=== PATIENT | male | born 1955 | race Caucasian/White ===

== ENCOUNTER 2021-04-07 21:48 | Emergency (ER) | payer SELFPAY ==
--- NOTE | 2021-04-07 22:14 | EDPHYS ---
Physician Documentation [facility] Name: Ana Monroe Age: 65 yrs Sex: Male : 1955 Arrival Date: 04/07/2021 Time: 21:54 Bed 26 Private MD: ED Physician Silvana Kimball HPI: 04/07 22:10 This 65 yrs old Male presents to ER via Unassigned with complaints of ma2 laceration. 22:10 The patient or guardian reports a puncture wound. The complaints affect the left hand ma2 diffusely. Onset: The symptoms/episode began/occurred suddenly, 1 hour(s) ago. Associated signs and symptoms: Pertinent negatives: nausea, numbness distally, vomiting. Severity of symptoms: At their worst the symptoms were severe, in the emergency department the symptoms are unchanged. The patient has not experienced similar symptoms in the past. Patient has past medical history of hypertension, does not take any blood thinners, he tripped fell on the left palm sustained a puncture/laceration to the left about 1 cm wide on the lateral aspect, Transverse, there is arterial bleeding, pulsating profusely. Bleeding is controlled with a pressure dressing.. Historical: - Allergies: 22:49 No Known Allergies; lh3 - Home Meds: 22:49 None [Active]; lh3 - PMHx: 22:49 Coronary atherosclerosis; Hypertensive disorder; Arthritis; lh3 - PSHx: 22:49 None; lh3 - Immunization history:: Last tetanus immunization: < 10 years ago Client reports receiving the 2nd dose of the Covid vaccine. - Social history:: Patient/guardian denies using alcohol, street drugs, The patient lives with family, Smoking status: Patient denies any tobacco usage or history of. - Family history:: not pertinent. ROS: 22:10 Constitutional: Negative for fever, chills, and weight loss. ma2 22:10 All other systems are negative. Exam: 22:10 Constitutional: This is a well developed, well nourished patient who is awake, alert, ma2 and in no acute distress. Head/Face: Normocephalic, atraumatic. Eyes: Pupils equal round and reactive to light, extra-ocular motions intact. Lids and lashes normal. Conjunctiva and sclera are non-icteric and not injected. Cornea within normal limits. Periorbital areas with no swelling, redness, or edema. ENT: Nares patent. No nasal discharge, no septal abnormalities noted. Tympanic membranes are normal and external auditory canals are clear. Oropharynx with no redness, swelling, or masses, exudates, or evidence of obstruction, uvula midline. Mucous membranes moist. Neck: Trachea midline, no thyromegaly or masses palpated, and no cervical lymphadenopathy. Supple, full range of motion without nuchal rigidity, or vertebral point tenderness. No Meningismus. Chest/axilla: Normal chest wall appearance and motion. Nontender with no deformity. No lesions are appreciated. Cardiovascular: Regular rate and rhythm with a normal S1 and S2. No gallops, murmurs, or rubs. Normal PMI, no JVD. No pulse deficits. Respiratory: Lungs have equal breath sounds bilaterally, clear to auscultation and percussion. No rales, rhonchi or wheezes noted. No increased work of breathing, no retractions or nasal flaring. Abdomen/GI: Soft, non-tender, with normal bowel sounds. No distension or tympany. No guarding or rebound. No evidence of tenderness throughout. Skin: Warm, dry with normal turgor. Normal color with no rashes, no lesions, and no evidence of cellulitis. MS/ Extremity: Laceration with arterial injury on the left anterior palm, transverse 1 cm, on the medial aspect. Bleeding is controlled with a pressure dressing. Patient is able to flex and extend all fingers, sensation is intact. Cap refill is less than 2 seconds on the left fingers. Pulses equal, no cyanosis. Neurovascular intact. Full, normal range of motion. Neuro: Awake and alert, GCS 15, oriented to person, place, time, and situation. Cranial nerves II-XII grossly intact. Motor strength 5/5 in all extremities. Sensory grossly intact. Cerebellar exam normal. Normal gait. Vital Signs: 22:00 BP 119 / 83; Pulse 87; Resp 18; Temp 98.2; Pulse Ox 100% on R/A; Weight 81.19 kg; lh3 Height 5 ft. 10 in. (177.80 cm); 22:11 BP 118 / 83; Pulse 68; Resp 22; Temp 98.2(O); Pulse Ox 100% on R/A; cc4 22:15 BP 119 / 83; Pulse 67; Resp 20; Pulse Ox 100% on R/A; cc4 22:30 BP 132 / 109; Pulse 85; Resp 20; Pulse Ox 100% on R/A; cc4 22:33 BP 108 / 85; Pulse 85; Resp 18; Pulse Ox 100% on R/A; cc4 22:43 BP 54 / 32; Pulse 59; Resp 16; Pulse Ox 100% on R/A; cc4 22:45 BP 52 / 39; Pulse 61; Resp 14; Pulse Ox 100% on R/A; cc4 22:48 BP 58 / 45; Pulse 61; Resp 16; Pulse Ox 98% on R/A; cc4 22:52 BP 111 / 67; Pulse 58; Resp 18; Pulse Ox 99% on R/A; cc4 23:00 BP 136 / 89; Pulse 62; Resp 18; Pulse Ox 96% on R/A; cc4 23:06 BP 144 / 76; Pulse 60; Resp 18; Pulse Ox 96% ; cc4 22:00 Body Mass Index 25.68 (81.19 kg, 177.80 cm) lh3 MDM: 21:55 Patient medically screened. ma2 22:10 Differential diagnosis: contusion, abrasion, tendonitis, laceration arterial. Data ma2 reviewed: vital signs, nurses notes. Counseling: I had a detailed discussion with the patient and/or guardian regarding: the historical points, exam findings, and any diagnostic results supporting the discharge/admit diagnosis, the presence of at least one elevated blood pressure reading (>120/80) during this emergency department visit, the need for outpatient follow up. Response to treatment: There is no appreciated change of the patient's symptoms at this time. ED course: Patient needs vascular surgeon, the service not available in our hospital will transfer to higher level of care. Initiated transfer to [facility], I discussed with Dr. Oswald hand surgeon and he accepted.. 04/07 21:55 Order name: CBC w/o diff; Complete Time: 22:46 [facility] 04/07 21:55 Order name: CMP; Complete Time: 22:46 [facility] 04/07 21:55 Order name: Type And Screen [facility] 04/07 22:51 Order name: Packed RBC Leukored [facility] 04/07 23:03 Order name: Glucose, Ancillary Testing 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 Exp: lh3 09/26/2022. Lot #: [id number]. } Route: IM; Site: right deltoid; Disposition Summary: 04/07/21 22:14 Transfer Ordered Transfer Location: [facility] ma2 Reason: Higher level of care ma2 Condition: Stable ma2 Problem: new ma2 Symptoms: are unchanged ma2 Accepting Physician: hand surgeondr. Hardy (04/07/21 23:46) em Diagnosis - Laceration of deep palmar arch of left hand - deep vs superficial palmar ma2 arch(04/07/21 22:14) Forms: - Medication Reconciliation Form ma2 - SBAR form ma2 Critical care time excluding procedures: 23:26 Critical care time: Bedside Care: 25 minutes, Consultation: 10 minutes, Family ma2 Intervention: 5 minutes. Total time: 40 minutes Signatures: Dispatcher [employer] EDAsif Ibarra PA PA jmm Munoz, Edgar, RN RN em Silvana Kimball MD MD ma2 Hardee, Latisha, RN RN 3 Corrections: (The following items were deleted from the chart) 22:14 22:14 hand surgeondr. Hardy [place] [id number] 22:14 22:14 Laceration of deep palmar arch of left hand oh2 [facility] 22:20 22:08 CORONAVIRUS+MR.LAB.BRZ ordered. EDMS EDMS 23:46 22:14 hand surgeondr. Hardy ohYancy em
[2021-04-07 22:33] LABS: MPV 6.2 fL (7.6-11.3); RBC Red Blood Cell Count 4.03 M/uL (4.33-5.43)
[2021-04-07 22:44] LABS: ALT/SGPT 18 U/L (12-78); AST/SGOT 17 U/L (15-37); Albumin 3.3 g/dL (3.4-5.0); Alkaline Phosphatase 123 U/L (45-117); BUN Blood Urea Nitrogen 10 mg/dL (7-18); Bicarbonate 23 mmol/L (21-32); Bilirubin Total 0.2 mg/dL (0.2-1.0); Glucose Level 92 mg/dL (74-106); Potassium 3.5 mmol/L (3.5-5.1); Protein, Total 7.8 g/dL (6.4-8.2); Sodium Level 144 mmol/L (136-145)
[2021-04-07] MEDS ORDERED: TETANUS & DIPHTHERIA TOX,ADULT 0.5 ML VIAL ONE (22:59)
[2021-04-07] MEDS ORDERED: NA CHLORIDE 0.9% 1,000 ML ONE (23:11)
[2021-04-07] MEDS ORDERED: NA CHLORIDE 0.9% 500 ML ONE ×2 (23:22→23:30)
--- NOTE | 2021-04-07 23:47 | ER ---
Nurse's Notes [facility] Name: Ana Monroe Age: 65 yrs Sex: Male : 1955 Arrival Date: 04/07/2021 Time: 21:54 Bed 26 Private MD: Diagnosis: Laceration of deep palmar arch of left hand-deep vs superficial palmar arch Presentation: 04/07 22:00 Initial Sepsis Screen: Does the patient meet any 2 criteria? No. Patient's initial 3 sepsis screen is negative. Does the patient have a suspected source of infection? No. Patient's initial sepsis screen is negative. Risk Assessment: Do you want to hurt yourself or someone else? Patient reports no desire to harm self or others. Onset of symptoms was April 07, 2021. Care prior to arrival: Bleeding of injury controlled. pressure dressing applied 22:00 Acuity: SUSY 2 3 22:44 Chief complaint: Patient states: that he fell in a ditch and cut his hand on some glass lh3 walked 6 miles to get some help and hand a beer along the way. EMS states: that he fell in a ditch and cut his left hand on glass. Coronavirus screen: Vaccine status: Patient reports receiving the 2nd dose of the covid vaccine. Ebola Screen: No symptoms or risks identified at this time. 22:44 Method Of Arrival: EMS [facility] Triage Assessment: 22:00 General: Appears in no apparent distress. Behavior is calm, cooperative, appropriate lh3 for age. Pain: Denies pain. Historical: - Allergies: 22:49 No Known Allergies; 3 - Home Meds: 22:49 None [Active]; lh3 - PMHx: 22:49 Coronary atherosclerosis; Hypertensive disorder; Arthritis; 3 - PSHx: 22:49 None; lh3 - Immunization history:: Last tetanus immunization: < 10 years ago Client reports receiving the 2nd dose of the Covid vaccine. - Social history:: Patient/guardian denies using alcohol, street drugs, The patient lives with family, Smoking status: Patient denies any tobacco usage or history of. - Family history:: not pertinent. Screenin:00 Abuse screen: Denies threats or abuse. Nutritional screening: No deficits noted. 3 Tuberculosis screening: No symptoms or risk factors identified. Fall Risk IV access (20 points). Assessment: 22:43 Reassessment: Pt became unresponsive, with a pulse. patient diaphoretic, and urinated 3 on self. 22:45 Reassessment: 2 NS Bolus administered at this time into 18G Right forearm. 3 22:55 Reassessment: trauma tourniquet applied. 3 23:00 Reassessment: 1st unit of blood (O Neg) started at this time 18G right forearm. 3 23:09 Reassessment: 2nd unit of blood started at this time 18G right forearm. 3 Vital Signs: 22:00 BP 119 / 83; Pulse 87; Resp 18; Temp 98.2; Pulse Ox 100% on R/A; Weight 81.19 kg; 3 Height 5 ft. 10 in. (177.80 cm); 22:11 BP 118 / 83; Pulse 68; Resp 22; Temp 98.2(O); Pulse Ox 100% on R/A; cc4 22:15 BP 119 / 83; Pulse 67; Resp 20; Pulse Ox 100% on R/A; cc4 22:30 BP 132 / 109; Pulse 85; Resp 20; Pulse Ox 100% on R/A; cc4 22:33 BP 108 / 85; Pulse 85; Resp 18; Pulse Ox 100% on R/A; cc4 22:43 BP 54 / 32; Pulse 59; Resp 16; Pulse Ox 100% on R/A; cc4 22:45 BP 52 / 39; Pulse 61; Resp 14; Pulse Ox 100% on R/A; cc4 22:48 BP 58 / 45; Pulse 61; Resp 16; Pulse Ox 98% on R/A; cc4 22:52 BP 111 / 67; Pulse 58; Resp 18; Pulse Ox 99% on R/A; cc4 23:00 BP 136 / 89; Pulse 62; Resp 18; Pulse Ox 96% on R/A; cc4 23:06 BP 144 / 76; Pulse 60; Resp 18; Pulse Ox 96% ; cc4 22:00 Body Mass Index 25.68 (81.19 kg, 177.80 cm) 3 ED Course: 21:54 Patient arrived in ED. tt3 21:55 Silvana Kimball MD is Attending Physician. ma2 21:55 Inserted saline lock: 18 gauge in right forearm, using aseptic technique. 3 21:55 No provider procedures requiring assistance completed. 3 21:56 Initiated transfer at [facility] with Taylor Singh. Call was connected to tt3 Dr. Kimball for consultation. 22:00 Arm band placed on right wrist. 3 22:00 Patient has correct armband on for positive identification. Bed in low position. Side 3 rails up X 1. 22:00 Inserted saline lock: 18 gauge in right antecubital area, using aseptic technique. [facility] 22:06 Taylor Singh called back with their physician to speak with Dr. Kimball regarding tt3 the transfer request. 22:09 Taylor Francisco gave admin approval. The pt is going to [facility] ER. The tt3 accepting physician is Dr. Goldstein. Nurse to call report to ([phone]. Face sheet and MOT to be faxed to per Taylor's request. 22:49 Triage completed. 3 23:45 Patient transferred, IV remains in place. 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 Exp: 3 09/26/2022. Lot #: [id number]. } Route: IM; Site: right deltoid; Outcome: 22:14 ER care complete, transfer ordered by . tx2 23:45 Transferred by helicopter to [facility], Transfer form completed. em 23:45 Condition: stable 23:45 Instructed on the need for transfer. 23:46 Patient left the ED. em Signatures: Nic Chaney RN TEE em Silvana Kimball MD MD tx2 Roberto Coffey 3 Gina Polanco RN RN 3 Mercy Monroe RN RN cc4 Corrections: (The following items were deleted from the chart) 23:19 22:44 Coronavirus screen: Vaccine status: Patient reports being unvaccinated. [place] [id number] 23:27 23:21 Reassessment: 1st unit of blood started at this time. lh3 lh3 23:32 23:28 Reassessment: 3 3 23:37 23:00 Reassessment: !st unit of blood (O Neg) started at this time. 3 3 : 23:00 Reassessment: 1st unit of blood (O Neg) started at this time. 3 3 : 23:09 Reassessment: 2nd unit of blood started at this time. 3 3 : 22:43 Reassessment: Pt became unresponsive, with a pulse. [facility]
[2021-04-08 09:55] VITALS: TEMP 98.2
[2021-04-08 10:07] VITALS: O2SAT 96
[2021-04-08 10:08] VITALS: BP 144/76
== END 2021-04-07 23:46 | disposition short-term general hospital (02) ==
LOC: ER 21:48
PROC: 30233N1 Transfusion of Nonautologous Red Blood Cells into Peripheral Vein, Percutaneous Approach (ICD-10-PCS; principal; 2021-04-07)
DX: S65.3 Injury of deep palmar arch (principal); W01.110A Fall on same level from slipping, tripping and stumbling with subsequent striking against sharp glass, initial encounter; I10 Essential (primary) hypertension; Z23 Encounter for immunization
CPT/HCPCS: 36415; 80053; 82947; 85027; 86850; 86900; 86901; 90471; 90714; 99285; J7030; J7040; P9016; U0003

== ENCOUNTER 2023-03-05 11:02 | Emergency (ER) | payer SELFPAY ==
[2023-03-05 11:24] LABS: Absolute Lymphocytes (CBC) 2.2 K/uL (0.7-4.9); Hematocrit 39.6 % (39.6-49.0); MCV 91.8 fL (80-100); Platelets 322 thou/uL (152-406); RBC Red Blood Cell Count 4.31 M/uL (4.33-5.43)
[2023-03-05 11:50] LABS: Albumin 3.6 g/dL (3.4-5.0); Bilirubin Direct 0.1 mg/dL (0-0.2); Bilirubin Indirect, Calculated 0.3 mg/dL (0.2-0.8); Bilirubin Total 0.4 mg/dL (0.2-1.0); Magnesium 2.6 mg/dL (1.6-2.4); Potassium 3.3 mEq/L (3.5-5.1); Protein, Total 8.6 g/dL (6.4-8.2); Troponin High Sensitivity 11.2 pg/mL (<58.9)
--- NOTE | 2023-03-05 12:20 | RAD REPORT ---
EXAM DESCRIPTION: CT - Head Brain Wo Cont - 03/05/2023 11:35 am CLINICAL HISTORY: confusion Headache, drowsiness, disorientation, altered awareness. COMPARISON: No comparisons TECHNIQUE: All CT scans are performed using dose optimization technique as appropriate and may inclu de automated exposure control or mA/KV adjustment according to patient size. FINDINGS: No intracranial hemorrhage, hydrocephalus or extra-axial fluid collection.Mild generalized brain atrophy seen.No areas of brain edema or evidence of midline shift. The paranasal sinuses and mastoids are clear. The calvarium is intact. IMPRESSION: No acute intracranial abnormality.
--- NOTE | 2023-03-05 12:24 | RAD REPORT ---
EXAM DESCRIPTION: RAD - Chest Single View - 03/05/2023 11:47 am CLINICAL HISTORY: confusion Chest pain. COMPARISON: Chest Single View dated 01/13/2017 FINDINGS: Portable technique limits examination quality. The lungs are emphysematous but grossly clear. The heart is normal in size. No displaced fractures. IMPRESSION: No acute intrathoracic process suspected.
--- NOTE | 2023-03-05 12:41 | EDPHYS ---
Physician Documentation [facility] Name: Ana Monroe Age: 67 yrs Sex: Male : 1955 Arrival Date: 03/05/2023 Time: 11:02 Bed 4 Private MD: ED Physician Huber Noguera HPI: 03/05 11:25 This 67 yrs old Male presents to ER via EMS with complaints of Altered Mental Status. rt 11:25 Patient who was reportedly homeless presents to the ED with confusion. The patient rt states that he has no acute complaints at this time. EMS was right on him before says that he seems to be at his baseline. Denies other acute complaints at this time. Symptoms are moderate in severity, no other aggravating alleviating factors. Historical: - Allergies: : No Known Allergies; iw - PMHx: 11: Arthritis; coronary atherosclerosis; Hypertensive disorder; iw ROS: 11:28 Constitutional: Negative for fever, chills, and weight loss, Cardiovascular: Negative rt for chest pain, palpitations, and edema, Respiratory: Negative for shortness of breath, cough, wheezing, and pleuritic chest pain, Abdomen/GI: Negative for abdominal pain, nausea, vomiting, diarrhea, and constipation, MS/Extremity: Negative for injury and deformity, Skin: Negative for injury, rash, and discoloration, Psych: Negative for depression, anxiety, suicide ideation, homicidal ideation, and hallucinations. Exam: 11:28 Constitutional: This is a well developed, well nourished patient who is awake, alert, rt and in no acute distress. Head/Face: Normocephalic, atraumatic. Chest/axilla: Normal chest wall appearance and motion. Nontender with no deformity. No lesions are appreciated. Cardiovascular: Regular rate and rhythm with a normal S1 and S2. No gallops, murmurs, or rubs. Normal PMI, no JVD. No pulse deficits. Respiratory: Lungs have equal breath sounds bilaterally, clear to auscultation and percussion. No rales, rhonchi or wheezes noted. No increased work of breathing, no retractions or nasal flaring. Abdomen/GI: Soft, non-tender, with normal bowel sounds. No distension or tympany. No guarding or rebound. No evidence of tenderness throughout. Skin: Warm, dry with normal turgor. Normal color with no rashes, no lesions, and no evidence of cellulitis. MS/ Extremity: Pulses equal, no cyanosis. Neurovascular intact. Full, normal range of motion. Neuro: Awake and alert, GCS 15, oriented to person, place, time, and situation. Cranial nerves II-XII grossly intact. Motor strength 5/5 in all extremities. Sensory grossly intact. Cerebellar exam normal. Normal gait. Psych: Awake, alert, with orientation to person, place and time. Behavior, mood, and affect are within normal limits. 11:28 ECG was reviewed by the Attending Physician. Vital Signs: 11:17 BP 134 / 88; Pulse 77; Resp 16; Temp 98.5; Pulse Ox 97% on R/A; iw MDM: 11:05 Patient medically screened. rt 16:54 Differential Diagnosis: Alcohol intoxication, intracranial hemorrhage, trauma, rt electrolyte disturbance, rhabdomyolysis. Data reviewed: vital signs, nurses notes. Consideration of Admission/Observation Escalation of care including admission/observation considered. I considered the following discharge prescriptions or medication management in the emergency department Medications were administered in the Emergency Department. See MAR. Independent interpretation of the following test(s) in the Emergency Department CT Scan: My interpretation is No hemorrhage seen on interpretation of the CT scan images. Care significantly affected by the following chronic conditions: Hypertension. Counseling: I had a detailed discussion with the patient and/or guardian regarding the historical points, exam findings, and any diagnostic results supporting the discharge/admit diagnosis, lab results, radiology results, the need for outpatient follow up. 03/05 11:05 Order name: Basic Metabolic Panel; Complete Time: 12:21 rt 03/05 11:05 Order name: CBC with Diff; Complete Time: 12:21 rt 03/05 11:05 Order name: LFT's; Complete Time: 12:21 rt 03/05 11:05 Order name: Magnesium; Complete Time: 12:21 rt 03/05 11:05 Order name: Troponin HS; Complete Time: 12:21 rt 03/05 11:05 Order name: ETOH Level; Complete Time: 12:21 rt 03/05 11:05 Order name: CPK; Complete Time: 12:21 rt 03/05 11:05 Order name: XRAY Chest (1 view); Complete Time: 12:30 rt 03/05 11:05 Order name: CT Head Brain wo Cont; Complete Time: 12:21 rt 03/05 11:05 Order name: EKG; Complete Time: 11: rt 03/05 11:05 Order name: Cardiac monitoring; Complete Time: 11:17 rt 03/05 11:05 Order name: EKG - Nurse/Tech; Complete Time: 11:15 rt 03/05 11:05 Order name: IV Saline Lock; Complete Time: 11: rt 03/05 11:05 Order name: Labs collected and sent; Complete Time: : rt 03/05 11:05 Order name: O2 Per Protocol; Complete Time: :16 rt 03/05 11:05 Order name: O2 Sat Monitoring; Complete Time: :16 rt EC: Rate is 89 beats/min. Rhythm is regular, Normal Sinus Rhythm with No ectopy. QRS [place] rt is Normal. AR interval is normal. QRS interval is normal. QT interval is normal. No Q waves. T waves are Normal. No ST changes noted. Interpreted by me. Administered Medications: No medications were administered Disposition Summary: 03/05/23 12:39 Discharge Ordered Location: Home rt Problem: new rt Symptoms: are unchanged rt Condition: Stable rt Diagnosis - Alcohol abuse with intoxication rt Followup: rt - With: Private Physician - When: 2 - 3 days - Reason: Discharge Instructions: - Discharge Summary Sheet rt - Alcohol Intoxication rt Forms: - Medication Reconciliation Form rt - Thank You Letter rt - Antibiotic Education rt - Prescription Opioid Use rt - Patient Portal Instructions rt - Leadership Thank You Letter rt Signatures: Dispatcher [employer] Jessica Crespo, Huber Taveras RN, MD MD rt
--- NOTE | 2023-03-05 12:41 | ER ---
Nurse's Notes [facility] Name: Ana Monroe Age: 67 yrs Sex: Male : 1955 Arrival Date: 03/05/2023 Time: 11:02 Bed 4 Private MD: Diagnosis: Alcohol abuse with intoxication Presentation: 03/05 11:04 Chief complaint: EMS states: pt ws found in street by PD, talking gibberish, he denies iw ETOH or drug use, he [place] [address], thinks he got over heated. Coronavirus screen: At this time, the client does not indicate any symptoms associated with coronavirus-19. Ebola Screen: Patient negative for fever greater than or equal to 101.5 degrees Fahrenheit, and additional compatible Ebola Virus Disease symptoms Patient denies exposure to infectious person. Patient denies travel to an Ebola-affected area in the 21 days before illness onset. No symptoms or risks identified at this time. Onset of symptoms was March 05, 2023. 11:04 Method Of Arrival: EMS: [facility] iw 11:04 Acuity: SUSY 3 iw 11:30 Risk Assessment: Do you want to hurt yourself or someone else? Patient reports no iw desire to harm self or others. 11:30 Initial Sepsis Screen: Does the patient meet any 2 criteria? No. Patient's initial iw sepsis screen is negative. Does the patient have a suspected source of infection? No. Patient's initial sepsis screen is negative. Historical: - Allergies: 11:05 No Known Allergies; iw - PMHx: 11:05 Arthritis; coronary atherosclerosis; Hypertensive disorder; iw Screenin:18 [facility] ED Fall Risk Assessment (Adult) Score/Fall Risk Level 0 - 2 = Low Risk. Abuse iw screen: Denies threats or abuse. Denies injuries from another. Abuse screen: Denies threats or abuse. Nutritional screening: No deficits noted. Tuberculosis screening: No symptoms or risk factors identified. Assessment: 11:18 General: Appears in no apparent distress. comfortable, Behavior is calm, cooperative. iw Pain: Denies pain. Neuro: Level of Consciousness is awake, alert, obeys commands, Oriented to person, Moves all extremities. Full function. Cardiovascular: Patient's skin is warm and dry. Respiratory: Respiratory effort is even, unlabored, Respiratory pattern is regular, symmetrical. GI: Abdomen is flat, non-distended. Derm: Skin is intact, is healthy with good turgor. Musculoskeletal: Capillary refill Range of motion: intact in all extremities. Vital Signs: 11:17 BP 134 / 88; Pulse 77; Resp 16; Temp 98.5; Pulse Ox 97% on R/A; iw ED Course: 11:03 Patient arrived in ED. iw 11:03 Huber Noguera MD is Attending Physician. rt 11:05 Triage completed. iw 11:05 Jessica Singh RN is Primary Nurse. iw 11:05 Arm band placed on. iw 11:18 Inserted saline lock: 20 gauge in left antecubital area, using aseptic technique. Blood iw collected. IV inserted by [email or web address] tech. 11:20 Patient has correct armband on for positive identification. iw 11:36 CT Head Brain wo Cont In Process Unspecified. EDMS 11:49 XRAY Chest (1 view) In Process Unspecified. EDMS 13:29 No provider procedures requiring assistance completed. IV discontinued, intact, iw bleeding controlled, No redness/swelling at site. Pressure dressing applied. Administered Medications: No medications were administered Medication: 11:18 VIS not applicable for this client. iw Outcome: 12:39 Discharge ordered by . rt 13:29 Discharged to home ambulatory. iw 13:29 Condition: good 13:29 Discharge instructions given to patient, Instructed on discharge instructions, follow up and referral plans. Demonstrated understanding of instructions, follow-up care. 13:30 Patient left the ED. iw Signatures: Dispatcher [employer] Jessica Crespo RN RN iw Huber Noguera MD MD rt
[2023-03-05 13:39] VITALS: BP 134/88; TEMP 98.5; O2SAT 97
--- NOTE | 2023-03-07 15:10 | EKG ---
Test Date: 2023-03-05 Test Time: 11:11:41 [employer] Worker: ANN-MARIE MEASUREMENT RESULTS: Intervals: Rate: 89 CA: 178 QRSD: 84 QT: 372 QTc: 452 [place]: P: 61 CA: 178 QRS: 65 T: 56 INTERPRETIVE STATEMENTS: Normal sinus rhythm Normal ECG Compared to ECG 01/14/2017 07:03:49 Sinus bradycardia no longer present Electronically Signed On 03-07-23 15:06:50 CDT by Fermin Fischer
== END 2023-03-05 13:30 | disposition home or self-care (01) ==
LOC: ER 11:02
DX: F10.129 Alcohol abuse with intoxication, unspecified (principal)
CPT/HCPCS: 36415; 70450; 71045; 80048; 80076; 82077; 82550; 83735; 84484; 85025; 93005; 99284

== ENCOUNTER 2023-05-13 00:11 | Emergency (ER) | payer SELFPAY ==
[2023-05-13] MEDS ORDERED: HYDROCODONE/APAP 10/325 TAB ONE (01:15)
[2023-05-13 03:27] LABS: Absolute Lymphocytes (CBC) 0.4 K/uL (0.7-4.9); Lymphocytes % 3.3 % (15.3-44.8); MPV 5.8 fL (7.6-11.3); Platelets 343 thou/uL (152-406); RBC Red Blood Cell Count 3.48 M/uL (4.33-5.43)
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
[2023-05-13 03:45] LABS: Albumin 2.5 g/dL (3.4-5.0); Bilirubin Total 0.5 mg/dL (0.2-1.0); Magnesium 1.8 mg/dL (1.6-2.4); Potassium 2.8 mEq/L (3.5-5.1)
[2023-05-13] MEDS ORDERED: CEFAZOLIN SODIUM 1 GM/VIAL ONE (04:17)
[2023-05-13] MEDS ORDERED: NA CHLORIDE 0.9% 500 ML ONE ×2 (04:17→04:56)
[2023-05-13] MEDS ORDERED: NA CHLORIDE 0.9% 1,000 ML ONE ×2 (04:18→04:57)
[2023-05-13] MEDS ORDERED: NA CHLORIDE 0.9% 100 ML ONE (04:18)
[2023-05-13] MEDS ORDERED: THIAMINE 200 MG/2 ML INJ ONE (04:56)
[2023-05-13] MEDS ORDERED: POTASSIUM 25 MEQ EFFERV TAB ONE (04:56)
[2023-05-13] MEDS ORDERED: KCL 20 MEQ/100 mL IVPB 100 ML IV ONE (04:57)
[2023-05-13] MEDS ORDERED: MULTIVITAMINS 10 ML VIAL (INJ) IV ONE (04:57)
[2023-05-13] MEDS ORDERED: FOLIC ACID 5 MG/ML VIAL ONE (04:58)
[2023-05-13 05:08] LABS: Blood Morphology Comment NOT SEEN (NOT SEEN); Platelet Estimate ADEQ
[2023-05-13 07:07] VITALS: TEMP 98.2
[2023-05-13 07:13] VITALS: BP 108/76; O2SAT 100
--- NOTE | 2023-05-13 10:28 | RAD REPORT ---
EXAM DESCRIPTION: US Duplex Bilateral Lower Extremities Veins CLINICAL HISTORY: PAIN TECHNIQUE: Real-time duplex ultrasound scan of the bilateral lower extremity veins integrating B-mod e two-dimensional vascular structure, Doppler spectral analysis, color flow Doppler imaging and compr ession. COMPARISON: No relevant prior studies available. FINDINGS: Right deep veins: Unremarkable. No DVT in the right common femoral, femoral, proximal deep femoral, popliteal or visualized calf veins. The veins demonstrate normal color flow, are norm ally compressible, with normal phasic flow and/or augmentation response. Right superficial veins: Unremarkable. No thrombus in the visualized right great saphenous vein. Left deep veins: Unremarkable. No DVT in the left common femoral, femoral, proximal deep femoral, popliteal or visualized calf veins. The veins demonstrate normal color flow, are normally compress ible, with normal phasic flow and/or augmentation response. Left superficial veins: Unremarkable. No thrombus in the visualized left great saphenous vein. Soft tissues: Subcutaneous edema. There is a 4.3 x 2.2 cm left popliteal cyst. IMPRESSION: No evidence for deep venous thrombosis within the bilateral lower extremity. Electronically signed by: Lenny Dennis MD 05/13/2023 4:07 AM CDT Due to temporary technical issues with the PACS/Fluency reporting system, reports are being signed by the in house radiologist without review as a courtesy to ensure prompt reporting. The interpreting r adiologist is fully responsible for the content of the report.
--- NOTE | 2023-05-13 10:35 | RAD REPORT ---
EXAM DESCRIPTION: XR Right Femur, 2 Views CLINICAL HISTORY: PAIN Femur Right TECHNIQUE: Frontal and lateral views of the right femur. COMPARISON: Chest abdomen pelvis CT dated 05/13/2023 FINDINGS: Bones/joints: Osseous structures are osteopenic. No acute fracture. 3 screws transfi x the medial femoral condyle. Mild degenerative changes at the right hip joint. Tricompartmental degenerative changes at the level of the knee most pronounced, moderate to severe at the patellofemor al articulation. Small joint effusion. No dislocation. Soft tissues: Soft tissue prominence in the lateral gluteal region as seen on the CT. Vasculature: Atherosclerotic disease. IMPRESSION: No acute fracture. Soft tissue prominence in the lateral gluteal region as seen on the CT. The location and appearance of the collection on the CT can be seen with a Cruzito villatoroi on. Electronically signed by: Lenny Dennis MD 05/13/2023 3:49 AM CDT Due to temporary technical issues with the PACS/Fluency reporting system, reports are being signed by the in house radiologist without review as a courtesy to ensure prompt reporting. The interpreting r adiologist is fully responsible for the content of the report.
--- NOTE | 2023-05-13 10:40 | RAD REPORT ---
EXAM DESCRIPTION: XR Pelvis, 1 or 2 Views CLINICAL HISTORY: The patient is 67 years old and is Male; PAIN TECHNIQUE: Frontal view of the pelvis. COMPARISON: No relevant prior studies available. FINDINGS: Bones/joints: Degenerative changes in the hips. Suggestion of fusion at the pubic symphysis. No acute fracture. No dislocation. Soft tissues: Unremarkable. IMPRESSION: No acute fracture or dislocation. Electronically signed by: Wolfgang Sparrow MD 05/13/2023 1:25 AM CDT Due to temporary technical issues with the PACS/Fluency reporting system, reports are being signed by the in house radiologist without review as a courtesy to ensure prompt reporting. The interpreting r adiologist is fully responsible for the content of the report.
--- NOTE | 2023-05-13 10:46 | RAD REPORT ---
EXAM DESCRIPTION: ADDENDUM #1 Note the right hip fluid collection below has characteristics suggestive of a [place] lesion ( closed degloving soft-tissue injury). Electronically signed by: Wolfgang Sparrow MD 05/13/2023 3:52 AM CDT End of Addendum EXAM DESCRIPTION: CT Chest, Abdomen and Pelvis Without Intravenous Contrast CLINICAL HISTORY: The patient is 67 years old and is Male; ABD AND BACK PAIN TECHNIQUE: Axial computed tomography images of the chest, abdomen and pelvis without intravenous con trast. Sagittal and coronal reformatted images were created and reviewed. This CT exam was perfor med using one or more of the following dose reduction techniques: automated exposure control, adjus tment of the mA and/or kV according to patient size, and/or use of iterative reconstruction technique . COMPARISON: No relevant prior studies available. FINDINGS: CHEST: Lungs: There are a few mild non-specific groundglass opacities in the lungs bilaterally. Pleural space: Unremarkable. No significant effusion. No pneumothorax. Heart: Coronary artery calcification. No significant pericardial effusion. ABDOMEN: Liver: Unremarkable. Gallbladder and bile ducts: Unremarkable. No calcified stones. No ductal dilation. Pancreas: Unremarkable. No ductal dilation. Spleen: Unremarkable. No splenomegaly. Adrenals: Unremarkable. No mass. Kidneys and ureters: Unremarkable. No obstructing stones. No hydronephrosis. Stomach and bowel: Moderately distended colon with air-fluid levels suggestive of diarrhea. No mucosal thickening. PELVIS: Appendix: No findings to suggest acute appendicitis. Bladder: Unremarkable. No stones. Reproductive: Unremarkable as visualized. CHEST, ABDOMEN and PELVIS: Intraperitoneal space: Unremarkable. No significant fluid collection. No free air. Bones/joints: Disc space narrowing with degenerative endplate changes in the spine. No acute fracture. No dislocation. Soft tissues: There is a large 7.2 x 11.0 x 15.9 cm low-density fluid collection in the subcutane ous soft tissues superficial to the right gluteal musculature. There is overlying skin thickening and subcutaneous stranding extending down into the thigh. Small fat-containing inguinal hernias bilaterally. Vasculature: Scattered atherosclerotic vascular calcifications. Lymph nodes: There are some prominent/enlarged right inguinal lymph nodes. IMPRESSION: 1. There are a few mild non-specific groundglass opacities in the lungs bilaterally. 2. There is a large 7.2 x 11.0 x 15.9 cm low-density fluid collection in the subcutaneous soft tiss ues superficial to the right gluteal musculature. There is overlying skin thickening and subcutaneous stranding extending down into the thigh. Correlate with any history of trauma or infection. Absces s is not excluded. 3. There are some prominent/enlarged right inguinal lymph nodes. 4. Moderately distended colon with air-fluid levels suggestive of diarrhea. Electronically signed by: Wolfgang Sparrow MD 05/13/2023 2:23 AM CDT Due to temporary technical issues with the PACS/Fluency reporting system, reports are being signed by the in house radiologist without review as a courtesy to ensure prompt reporting. The interpreting r adiologist is fully responsible for the content of the report.
== END 2023-05-13 06:57 | disposition short-term general hospital (02) ==
LOC: ER 00:11
DX: S30.0XXD Contusion of lower back and pelvis, subsequent encounter (principal); M25.561 Pain in right knee; L03.115 Cellulitis of right lower limb; R60.9 Edema, unspecified; E87.1 Hypo-osmolality and hyponatremia; D72.829 Elevated white blood cell count, unspecified; E87.6 Hypokalemia; D64.9 Anemia, unspecified; F10.10 Alcohol abuse, uncomplicated; Z98.890 Other specified postprocedural states
CPT/HCPCS: 36415; 71250; 72170; 74176; 80053; 83605; 83735; 85025; 87040; 93970; 99285; J0690; J3411; J3480; J7030; J7040